=== PATIENT | female | born 2000 | race Caucasian/White ===

== ENCOUNTER 2025-02-07 12:58 | Outpatient (CLI) | payer BC, SELFPAY ==
--- NOTE | 2025-02-07 13:00 | CRLHL7_ITS ---
For Patients: As a result of the Century Cures Act, medical imaging exams and procedure reports are released immediately into your electronic medical record. You may view this report before your referring provider. If you have questions, please contact your health care provider. OB ULTRASOUND LESS THAN 14 WEEKS, 02/07/2025 CLINICAL HISTORY: Dating and viability. TECHNIQUE: Real time pro scale imaging of the fetus was performed. Transvaginal imaging performed. COMPARISON: None. FINDINGS: Imaging: TV. LMP: 12/20/2024. SHANE by LMP: 09/26/2025. GA: 7 weeks 0 days. CRL: 1.1 cm, 7 weeks 2 days. SHANE 09/24/2025. FHR: 149 bpm. GEST SAC: 2.1 cm, appears WNL. YOLK SAC: 3.2 mm, appears WNL. RIGHT OV: 2.8 x 2.1 2.4 cm, WNL. LEFT OV: 3.5 x 1.9 x 2.0 cm, WNL. IMPRESSION: 1. Single living intrauterine measuring 7 weeks 2 days and sonographic due date 09/24/2025. 2. Subchorionic hemorrhage measures 9 x 8 x 6 mm. 3. Corpus luteal cyst left ovary measures 1.6 cm. 4. Simple right paraovarian cyst measures 2.6 x 2.0 x 2.0 cm. Dirk Alcazar M.D. Diagnostic Radiologist [email or web address] Transcribed: 9:39 am DW/Dictated by: Dirk Alcazar MD @ 02/08/2025 9:21:00 AM (Electronically Signed)
== END 2025-02-07 12:59 | disposition home or self-care (01) ==
LOC: US 13:00
PROVIDERS: Visit Provider Physician Assistant
DX: Z34.91 Encounter for supervision of normal pregnancy, unspecified, first trimester (principal); O20.9 Hemorrhage in early pregnancy, unspecified; O34.81 Maternal care for other abnormalities of pelvic organs, first trimester; N83.12 Corpus luteum cyst of left ovary; N83.291 Other ovarian cyst, right side; Z3A.01 Less than 8 weeks gestation of pregnancy
CPT/HCPCS: 76817; 83021; 86592; 86703; 86704; 86706; 86762; 86787; 86803; 86850; 86900; 86901; 87086; 87340; 87491; 87591

== ENCOUNTER 2025-05-02 07:56 | Outpatient (CLI) | payer BC, SELFPAY ==
--- NOTE | 2025-05-02 08:00 | CRLHL7_ITS ---
For Patients: As a result of the 21st Century Cures Act, medical imaging exams and procedure reports are released immediately into your electronic medical record. You may view this report before your referring provider. If you have questions, please contact your health care provider. OB ULTRASOUND ANATOMY SURVEY TRANSABDOMINAL SHANE by LMP: 09/26/2025. GA: 19 w, 0 d. INDICATION: BFAS. TECHNIQUE: Real time pro scale, color and M-mode Doppler imaging of the fetus was performed. Transabdominal imaging performed. COMPARISON: 02/07/2025. position: Vertex. Cervix: Visualized. Technique: Transabdominal. Length of closed cervix: 3.4 cm. Placenta/cord: Anterior. Right wall. Technique: Transabdominal. Placenta tip to internal OS: 2.7 cm. Umbilical Cord: 3-vessel cord. Placenta insertion: Central. Amniotic Fluid: 4.3 cm SDP SURVEY: Observed Structures. Calvarium/Spine: Cerebellum: 1.8 cm, 18 w 6 d. Cisterna Magna: 4.5 mm. Nuchal Fold: 4 mm. Lateral Ventricle: 7.4 mm. CSP: Yes. Midline Falx: Yes. Choroid Plexus: Yes. Spine: Yes. Abdomen: Stomach: Yes. Abd Cord Insertion: Yes. Urinary Bladder: Yes. Kidneys: Yes. Diaphragm: Yes. Face: Nose/lips: Yes. Orbital view: Yes. Profile: Yes. Limbs: Upper Extremities: Yes. Lower Extremities: Yes. Hands: Yes. Feet: Yes. Vascular: 4-Chamber Heart: Yes. LVOT: Yes. RVOT: Yes. 3VV: Yes. 3VTV: Yes. BPD: 4.7 cm. 20 w, 1 d, 90 percent. HC: 16.8 cm. 19 w, 3 d, 65 percent. AC: 15.1 cm. 20 w, 2 d, 85 percent. FL: 3 cm. 19 w, 1 d, 48 percent. FL/AC ratio: 19.63 percent. HC/AC ratio: 1.11. heart rate: 132 bpm. age by this US: 19 w, 4 d. SHANE by this US: 09/22/2025. EFW: 311 g. Weight: 0 lbs, 11 oz. Percentile by SHANE: 86 percent. IMPRESSION: 1. Estimated weight is at the 86th percentile. 2. Normal anatomic survey. Manohar J. Groebner, M.D. Body/Diagnostic Radiologist [email or web address] SP/Dictated by: Manohar Henry MD @ 05/03/2025 3:50:00 PM (Electronically Signed)
== END 2025-05-02 07:57 | disposition home or self-care (01) ==
LOC: US 07:56
PROVIDERS: Visit Provider Obstetrics & Gynecology
DX: Z34.92 Encounter for supervision of normal pregnancy, unspecified, second trimester (principal); Z3A.19 19 weeks gestation of pregnancy
CPT/HCPCS: 76805

== ENCOUNTER 2025-06-28 10:03 | Outpatient (CLI) | payer BC, SELFPAY | END 2025-06-28 10:04 | disposition home or self-care (01) | LOC: NFLDREF 06-30 10:55 | PROVIDERS: Visit Provider Obstetrics & Gynecology | DX: Z34.92 Encounter for supervision of normal pregnancy, unspecified, second trimester (principal) | CPT/HCPCS: 86592; 86850; J2791 ==

== ENCOUNTER 2025-07-05 07:43 | Outpatient (CLI) | payer BC, SELFPAY | END 2025-07-05 07:44 | disposition home or self-care (01) | LOC: NFLDREF 10:44 | PROVIDERS: Visit Provider Obstetrics & Gynecology | DX: O99.810 Abnormal glucose complicating pregnancy (principal) | CPT/HCPCS: 82728; 82951; 82952 ==

== ENCOUNTER 2025-08-28 10:01 | Outpatient (CLI) | payer BC, SELFPAY ==
[2025-08-29 10:24] LABS: Strep B DNA Probe Negative (Negative)
[2025-08-29 10:33] LABS: Strep B Susceptibility Needed? No
== END 2025-08-28 10:02 | disposition home or self-care (01) ==
LOC: NFLDREF 10:01
PROVIDERS: PCP Obstetrics & Gynecology; Visit Provider Obstetrics & Gynecology
DX: Z34.93 Encounter for supervision of normal pregnancy, unspecified, third trimester (principal)
CPT/HCPCS: 87081; 87653

== ENCOUNTER 2025-08-30 10:15 | Outpatient (CLI) | payer BC, SELFPAY ==
[2025-08-30 10:36] VITALS: RESP 16; TEMP 36.7
[2025-08-30 10:37] VITALS: BP 117/75; PULSE 102; PULSE 88; PULSE 99; O2SAT 91; O2SAT 93
[2025-08-30 11:03] LABS: Amnisure Rom* Negative
--- NOTE | 2025-08-30 11:07 | CRLHL7_ITS ---
For Patients: As a result of the Cures Act, medical imaging exams and procedure reports are released immediately into your electronic medical record. You may view this report before your referring provider. If you have questions, please contact your health care provider. INDICATION: MYA check COMPARISON: Obstetric ultrasound on May 02, 2025 TECHNIQUE: Limited obstetric ultrasound, transabdominal approach, utilizing grayscale and color Doppler FINDINGS: Sonographic imaging demonstrates a single living intrauterine gestation. The fetus has a regular cardiac rate of 130 beats per minute. The fetus has a vertex orientation. The placenta lies anterior without evidence of placenta previa. Amniotic fluid volume appears normal with MYA of 16.7 centimeters and single deepest pocket of 5.5 centimeters. The cervix is not visualized. IMPRESSION: Normal MYA Dictated by Ángel Stewart MD @ 08/30/2025 12:03:58 PM (Electronically Signed)
[2025-08-30 11:27] LABS: Trichomonas No Trichomonas Seen (None Seen)
--- NOTE | 2025-08-30 11:57 | PC.OBNST ---
NST Note NST Note Start: 08/30/25 10:26 Freq: ONCE Status: Active Protocol: Document 08/30/25 11:56 [facility] (Rec: 08/30/25 11:56 [facility] [id number]) NST Note 2 Para (# of births) 1 EDC 09/26/25 Gestational Age In 36 Weeks & 1 Days Weeks & Days Patient Presented Decreased movement with Complaint(s) of Reactive Yes Appropriate for Yes Gestational Age RN Nai Bateman RN Date 08/30/25 Reactive Yes Appropriate for Yes Gestational Age ROJAS Merritt RN Date 08/30/25 OB NST charge Yes Complete NST Note Yes via Write Note The provider's electronic signature indicates the NST is reactive/appropriate for gestational age. *Note to provider: If an addendum is required, open the patient's chart and click on the note under the Nurse/Allied Health tab.
== END 2025-08-30 11:53 | disposition home or self-care (01) ==
LOC: OB CLI 10:16 → OB 10:16
PROVIDERS: PCP Obstetrics & Gynecology; Visit Provider Obstetrics & Gynecology
DX: O36.8130 Decreased fetal movements, third trimester, not applicable or unspecified (principal); Z3A.36 36 weeks gestation of pregnancy
CPT/HCPCS: 59025; 76815; 84112; 87210; G0463